=== PATIENT | female | born 1970 | race Caucasian/White ===

== ENCOUNTER → 2024-09-29 10:15 | Outpatient (REF) | payer BC, SELFPAY | LOC: HWRAD 10:15 | PROVIDERS: ATTENDING PHYSICIAN Family Medicine; REFERRING PHYSICIAN Obstetrics & Gynecology | DX: N95.0 Postmenopausal bleeding (principal) | CPT/HCPCS: 76830; 76856 ==

== ENCOUNTER → 2024-10-05 08:38 | Outpatient (REF) | payer BC, SELFPAY | LOC: WDC 08:38 | PROVIDERS: ATTENDING PHYSICIAN Family Medicine | DX: Z12.31 Encounter for screening mammogram for malignant neoplasm of breast (principal) | CPT/HCPCS: 77063; 77067 ==